=== PATIENT | male | born 1980 | race Caucasian/White ===

== ENCOUNTER 2018-08-15 19:39 | Emergency (ER) | payer OTHER ==
--- NOTE | 2018-08-15 20:17 | EDM.PDOC ---
ED HPI GENERAL MEDICAL PROBLEM - General Chief Complaint: Lower Extremity Injury/Pain Stated Complaint: LEFT LEG Time Seen by Provider: 08/15/18 20:12 Source of Information: Reports: Patient History Limitations: Reports: No Limitations - History of Present Illness INITIAL COMMENTS - FREE TEXT/NARRATIVE: accidental left leg injury Left Lower Anterior Leg Pain Score (Numeric/FACES): 1 - Related Data Allergies Allergy/AdvReac Type Severity Reaction Status Date / Time No Known Allergies Allergy Verified 08/15/18 20:06 Home Meds: Home Meds . [No Known Home Meds] 08/15/18 [History] Past Medical History - Past Surgical History HEENT Surgical History: Reports: Other (See Below) Other HEENT Surgeries/Procedures: repair of ear drum Social & Family History - Family History Family Medical History: Noncontributory - Tobacco Use Smoking Status *Q: Unknown Ever Smoked Used Tobacco, but Quit: No Second Hand Smoke Exposure: No - Caffeine Use Caffeine Use: Reports: Coffee, Soda - Recreational Drug Use Recreational Drug Use: No Review of Systems - Review of Systems Review Of Systems: ROS reveals no pertinent complaints other than HPI. ED EXAM, GENERAL - Physical Exam Exam: See Below Exam Limited By: No Limitations General Appearance: Alert, WD/WN, No Apparent Distress Ears: Hearing Grossly Normal Throat/Mouth: Normal Voice, No Airway Compromise Head: Atraumatic Neck: Non-Tender, Full Range of Motion Respiratory/Chest: No Respiratory Distress Cardiovascular: Regular Rate, Rhythm GI/Abdominal: Soft, Non-Tender Extremities: Other (left calf with spfl abrasions, NV nwl, gait limited to discomfort) Neurological: Alert, Oriented, Normal Cognition, No Motor/Sensory Deficits Psychiatric: Normal Affect, Normal Mood Skin Exam: Warm, Dry, Normal Color Lymphatic: No Adenopathy Course - Vital Signs Last Recorded V/S: Last Vital Signs Temp 37.2 C 08/15/18 19:52 Pulse 63 08/15/18 19:52 Resp 18 08/15/18 19:52 BP 158/104 H 08/15/18 19:52 Pulse Ox 100 08/15/18 19:52 - Orders/Labs/Meds Orders: Active Orders 24 hr Category Date Time Status Vaccines to be Administered [RC] PER UNIT ROUTINE Care 08/15/18 20:47 Active Meds: Medications Discontinued Medications Generic Name Dose Route Start Last Admin Trade Name Freq PRN Reason Stop Dose Admin Clindamycin HCl 150 mg 08/15/18 20:45 08/15/18 20:53 Cleocin PO 08/15/18 20:46 150 mg ONETIME ONE Administration Diphtheria/Tetanus/Acell Pertussis 0.5 ml 08/15/18 20:47 08/15/18 20:53 Adacel IM 08/15/18 20:48 0.5 ml .ONCE ONE Administration - Re-Assessments/Exams Free Text/Narrative Re-Assessment/Exam: 08/15/18 20:46 results discussed with pt. Departure - Departure Time of Disposition: 21:05 Disposition: Home, Self-Care 01 Condition: Good Clinical Impression: Foreign body of lower leg Qualifiers: Encounter type: initial encounter Laterality: left Qualified Code(s): S80.852A - Superficial foreign body, left lower leg, initial encounter - Discharge Information Forms: ED Department Discharge Additional Instructions: 1) keep wound clean dry covered 2) recheck if looks worse or have any concern rx given; clindamycin 150mg qid x 40 - My Orders Last 24 Hours: My Active Orders 08/15/18 20:47 Vaccines to be Administered [RC] PER UNIT ROUTINE - Assessment/Plan Last 24 Hours: My Active Orders 08/15/18 20:47 Vaccines to be Administered [RC] PER UNIT ROUTINE
[2018-08-15] MEDS ORDERED: Clindamycin HCl 150 MG Cap PO ONE (20:45)
[2018-08-15] MEDS ORDERED: Diphtheria,Pertussis(Acell),Tetanus Vaccine 0.5 ML SDV IM ONE (20:47)
== END 2018-08-15 21:06 | disposition home or self-care (01) ==
LOC: DL.ED 19:39
DX: S80.852A Superficial foreign body, left lower leg, initial encounter (principal); X58.XXXA Exposure to other specified factors, initial encounter
CPT/HCPCS: 73590; 90471; 90715; 99283; A9270